=== PATIENT | female | born 1990 | race Caucasian/White ===

== ENCOUNTER 2017-08-10 12:23 | Outpatient (CLI) | payer OTHER ==
[2017-08-10 13:26] VITALS: BP 137/68; PULSE 134; RESP 18; TEMP 98.4
--- NOTE | 2017-09-02 12:39 | P.MSEPDOC ---
Presenting Problems - Arrival Data Date of Arrival on Unit: 08/10/17 Time of Arrival on Unit: 12:15 Mode of Transport: Ambulatory - Complaint OB-Reason for Admission/Chief Complaint: Decreased Movement Medical History - Information : 3 Para: 0 Term: 0 : 0 Abortions: Spontaneous or Elective: 2 Number of Living Children: 0 - Gestational Age Gestational Age by NAIDA (wks/days): 22 Weeks and 2 Days - History Complications: Smoker Review of Systems - Review of Systems Constitutional: No problems Breast: No problems ENT: No problems Cardiovascular: No problems Respiratory: No problems Gastrointestinal: No problems Genitourinary: No problems Musculoskeletal: No problems Neurological: No problems Skin: No problems Vital Signs - Temperature Temperature: 98.4 F Temperature Source: Oral - Pulse Right Brachial Pulse Rate: 134 Pulse Assessment Method: Automatic Cuff - Respirations Respiratory Rate: 18 Oxygen Delivery Method: Room Air - Blood Pressure Right Arm Blood Pressure: 137/68 Blood Pressure Mean: 91 Blood Pressure Source: Automatic Cuff Medical Screen Scoring (Pre) - Cervical Exam Dilation: Exam Deferred - Uterine Contractions Frequency: N/A Duration: N/A Intensity: N/A - Maternal Vital Signs Maternal Temperature: N/A Maternal Blood Pressure: N/A Signs of Preeclampsia: N/A Maternal Respirations: N/A - Pain Assessment Pain Scale Used: Numeric (1 - 10) Pain Intensity: 0 - Maternal Trauma Maternal Trauma: N/A - Assessment Baseline FHR: 128-146 Position: N/A Station: N/A - Total Score Total Score (Pre): 0 - Level of Risk Level of Risk: N/A Physician Notification (Pre) - Physician Notified Physician Notified Date: 08/10/17 Physician Notified Time: 12:47 Physician/Practitioner Notifed:: pipo Spoke With: pipo New Order Received: Yes - Notification Comment Comment: pt may be discharged home with maternal heart rate in low 100's Disposition - Disposition OB Disposition: Discharge to home Discharge Date: 08/10/17 Discharge Time: 13:00 I agree with the RN Medical Screening Exam: Yes Risk & Benefit of care provided described in d/c instruction: Yes Diagnosis: DECREASED MOVEMENTS, SECOND TRIMESTER, FETUS 1
== END 2017-08-10 13:00 | disposition home or self-care (01) ==
LOC: FBPOP 12:23
PROVIDERS: ATTEND Obstetrics & Gynecology
DX: O36.8120 Decreased fetal movements, second trimester, not applicable or unspecified (principal); Z3A.22 22 weeks gestation of pregnancy
CPT/HCPCS: 99213

== ENCOUNTER 2017-11-25 21:34 | Inpatient (IN) | payer OTHER ==
[2017-11-25] MEDS ORDERED: CITRIC ACID-SODIUM CITRATE 15 ML CUP PO ONE (22:22)
[2017-11-25] MEDS ORDERED: ceFAZolin IN SWFI 2 GM/20 ML SYRINGE IVP ONE (22:22)
[2017-11-25] MEDS ORDERED: LACTATED RINGERS 1,000 ML IV ONE (22:22)
[2017-11-25 22:28] LABS: Basophils % (A) 0 %; Eosinophils # (A) 0.1 k/uL (0-0.7); Eosinophils % (A) 0 %; HCT 36.7 % (34.0-46.0); HGB 12.7 gm/dL (11.4-16.0); Lymphocytes # (A) 1.8 k/uL (1.0-4.8); Lymphocytes % (A) 12 %; MCH 29.2 pg (25.0-35.0); MCHC 34.7 g/dL (31.0-37.0); MCV 84.2 fL (80.0-100.0); Mean Platelet Volume 7.2; Monocytes # (A) 0.5 k/uL (0-1.0); Monocytes % (A) 3 %; Neutrophils # (A) 12.2 k/uL (1.3-7.7); Neutrophils % (A) 83 %; Platelet Count 281 k/uL (150-450); RBC 4.36 m/uL (3.80-5.40); RDW 13.5 % (11.5-15.5); WBC 14.8 k/uL (3.8-10.6)
[2017-11-25] MEDS ORDERED: LACTATED RINGERS 1,000 ML IV SCH (22:30)
[2017-11-25 22:32] VITALS: BMI 40.1
--- NOTE | 2017-11-25 22:33 | P.HPOB ---
History of Present Illness H&P Date: 11/25/17 Chief Complaint: My water broke at 8:30 tonight This is a 27-year-old white female 3 para 0020 EDC 12/12/2017 at 37-4/7 weeks' gestation. Patient presents with spontaneous amniorrhexis which occurred at 8:30, clear fluid. She is having uterine contractions as well. She denies vaginal bleeding. Fetus is been active throughout the . Patient has a known breech infant, last seen in the office yesterday. Family history significant for hypertension. Social history patient is single, her boyfriend often is involved and present, one quarter pack per day tobacco, she denies alcohol and or drug use. Past surgical history voluntary termination of 2, tonsillectomy in the past. Past medical history unremarkable. ALLERGIES none known. Current medications vitamins. history is significant for blood type A+, rubella status immune. Urine culture, hepatitis B surface antigen, HIV testing, hepatitis C antibody, group B strep cultures all negative. Diabetes screen 101. On exam this is a pleasant white female, she is 5 foot 6 inches, approximate 235 #, vital signs are stable and patient is afebrile. The general physical exam is within normal limits. Amnio sure testing of the fluid is positive, cervix is 1-2 cm dilated. Bedside examination with the ultrasound confirms breech presentation with the head in the maternal left upper quadrant. heart tones are consistent with reactive NST. Impression: 37-4/7 weeks intrauterine , breech presentation, spontaneous amniorrhexis in early labor. Plan: Close maternal and surveillance. We will proceed with primary low transverse section. Anesthesia staff and nursing staff aware. All risks and benefits of this procedure have been discussed with the patient and I believe she understands our discussion with no question. Past Medical History History of Any Multi-Drug Resistant Organisms: None Reported Smoking Status: Current every day smoker Medications and Allergies Home Medications Medication Instructions Recorded Confirmed Type Pnv,Calcium 72/Iron/Folic Acid 1 tab PO DAILY 08/10/17 11/25/17 History [ Plus Tablet] Allergies Allergy/AdvReac Type Severity Reaction Status Date / Time No Known Allergies Allergy Verified 11/25/17 21:41 Exam Intake and Output 11/25/17 11/25/17 11/25/17 06:59 14:59 22:59 Other: Weight 106.141 kg
[2017-11-25] MEDS ORDERED: diphenhydrAMINE 25 MG CAP PO PRN (23:46)
[2017-11-25] MEDS ORDERED: HYDROcodone/APAP 5-325MG 1 EACH TAB PO PRN (23:46)
[2017-11-25] MEDS ORDERED: ONDANSETRON 4 MG/2 ML VIAL IVP PRN (23:46)
[2017-11-25] MEDS ORDERED: diphenhydrAMINE 50 MG CAP PO PRN (23:46)
[2017-11-25] MEDS ORDERED: ZOLPIDEM 5 MG TAB PO PRN (23:46)
[2017-11-25] MEDS ORDERED: NALOXONE 0.4 MG/ML 1 ML VIAL IV PRN (23:46)
[2017-11-25] MEDS ORDERED: diphenhydrAMINE 50 MG/ML 1 ML VIAL IVP PRN ×2 (23:46)
[2017-11-25] MEDS ORDERED: METOCLOPRAMIDE 5 MG/ML 2 ML VIAL IVP PRN (23:46)
--- NOTE | 2017-11-25 23:46 | P.OP ---
Date of Procedure: 11/25/17 Preoperative Diagnosis: 37-4/7 weeks, mustapha breech, spontaneous amniorrhexis, early labor Postoperative Diagnosis: Same, liveborn male infant, normal-appearing tubes ovaries and uterus Procedure(s) Performed: Primary low transverse section Anesthesia: spinal Surgeon: Kate Naqvi Day Care Aide #1: Kareem Walter Estimated Blood Loss (ml): 500 IV fluids (ml): 800 Urine output (ml): 300 Pathology: other (Placenta) Condition: stable Disposition: PACU Description of Procedure: Patient is brought to the operative suite, vaginal prep was performed and Boyd catheter is placed. A spinal analgesia is given without difficulty per Dr. Harry. She's put in the dorsal lithotomy position with left lateral uterine displacement. Bicitra and antibiotics are given. The appropriate timeout is performed to assure proper patient and procedural identification. Analgesia is checked and noted to be adequate. A low transverse incision is made in this is carried down through the subcutaneous tissue which is approximately 5-6 cm deep. The fascia is isolated , scored and extended bilaterally with curved Mcbride scissors. Peritoneum is next identified and incised, there is no bowel or bladder involvement. The bladder is low from the operative field and therefore not separately developed. Bladder blade is placed over the bladder to avoid any bladder and/or ureteral injury. A low transverse uterine incision is made in this is carried down through the myometrium into the endometrial cavity. The incision is extended bluntly. The infant's buttocks are delivered, sacrum anterior. The legs are delivered and a Pinard-like fashion. The infant is then delivered to the shoulders and a blue towel that is moistened is wrapped around the trunk. With over rotation the right shoulder, and then the left shoulder are delivered with 180 Kait. The chin is delivered flexed, there is no nuchal cord. Official delivery of a liveborn male is 2312 hours. The umbilical cord is doubly clamped and ligated. The oropharynx, nasopharynx, and external nares are thoroughly suctioned. scores of 9 and 9 at one and 5 minutes respectively are given. Infant weighs 6 lbs. 11 oz. or 3030 g. The placenta is delivered manually, it is inspected and noted to be intact with trivascular cord at 2314 hours. The uterus is then externalized. It is wiped clean with a sterile sponge to avoid any retained products of conception. The edges of the incision are grasped with Anton clamps. The uterus is closed in a two-step fashion, first layer running locking, second layer imbricated, both with 0 Vicryl suture. Excellent reapproximation is noted. Bilateral tubes and ovaries are inspected and noted to be normal. The abdomen was suctioned with suction on guard and the uterus is gently placed back into the abdominal cavity. Bilateral gutters are inspected and cleaned. All surfaces are hemostatically intact. Peritoneum was allowed to close by secondary intention. Fascia is closed in a running stitch of 0 Vicryl with over ligation in the midline. Subcutaneous tissue is irrigated, clean and dry. It is reapproximated with 3-0 Vicryl in a running stitch. 4-0 undyed Monocryl issues for final skin closure in a subcuticular manner. Mastisol and Steri-Strips tied to the wound. Dressing is placed. Boyd is noted to be draining clear urine, 300 mL total. Patient is brought back to the recovery room in very good condition with stable vital signs including blood pressure 130/60, pulse 104. Patient and her are requesting circumcision further infant son.
[2017-11-26] MEDS ORDERED: MORPHINE SULFATE 4 MG/ML SYRINGE IVP PRN (00:19)
[2017-11-26] MEDS ORDERED: NALBUPHINE 10 MG/ML VIAL (10ML MDV) IV PRN (00:19)
[2017-11-26] MEDS ORDERED: NALOXONE 0.4 MG/ML 1 ML VIAL IV PRN (00:19)
[2017-11-26] MEDS: LACTATED RINGERS 1,000 ML IV SCH ×3 (04:19→19:45)
[2017-11-26] MEDS: KETOROLAC 30 MG/ML 1 ML VIAL IVP PRN ×2 (05:33→12:58)
[2017-11-26 05:55] LABS: Basophils % (A) 0 %; Eosinophils % (A) 0 %; HCT 35.5 % (34.0-46.0); HGB 11.7 gm/dL (11.4-16.0); Lymphocytes # (A) 1.1 k/uL (1.0-4.8); Lymphocytes % (A) 7 %; MCH 28.4 pg (25.0-35.0); MCHC 32.9 g/dL (31.0-37.0); MCV 86.3 fL (80.0-100.0); Mean Platelet Volume 7.1; Monocytes # (A) 0.5 k/uL (0-1.0); Monocytes % (A) 3 %; Neutrophils % (A) 90 %; Platelet Count 241 k/uL (150-450); RBC 4.11 m/uL (3.80-5.40); RDW 13.6 % (11.5-15.5); WBC 16.6 k/uL (3.8-10.6)
--- NOTE | 2017-11-26 08:12 | P.PN ---
Subjective Progress Note Date: 11/26/17 Minimal sleep last night, tired. . No flatus. Pain well controlled. Objective - Vital Signs Vital signs: Vital Signs Temp 98.3 F 11/26/17 04:00 Pulse 89 11/26/17 04:00 Resp 16 11/26/17 06:00 BP 138/69 11/26/17 04:00 Pulse Ox 97 11/26/17 06:00 Intake & Output 11/25/17 11/26/17 11/26/17 18:59 06:59 18:59 Output Total 775 Balance -775 Weight 106.141 kg Output: Urine 775 Other: Voiding Method Indwelling Catheter # Voids 1 - Constitutional General appearance: Present: average body habitus, cooperative - EENT Eyes: Present: PERRLA ENT: Present: hearing grossly normal - Neck Neck: Present: normal ROM - Respiratory Respiratory: bilateral: CTA - Cardiovascular Rhythm: regular - Gastrointestinal General gastrointestinal: Present: normal bowel sounds - Genitourinary Genitourinary Comment(s): Uterus is firm, mobile, midline, symmetric, 18 week size. Incision clean and dry, intact, Steri-Strips applied. - Integumentary Integumentary: Present: normal - Neurologic Neurologic: Present: CNII-XII intact - Musculoskeletal Musculoskeletal: Present: gait normal, strength equal bilaterally - Psychiatric Psychiatric: Present: A&O x's 3, appropriate affect, intact judgment & insight - Additional findings Additional findings: Patient has had 2 panic attacks since her surgery last night. - Labs CBC & Chem 7: 11/26/17 05:26 Labs: Abnormal Lab Results - Last 24 Hours (Table) 11/25/17 11/26/17 Range/Units 22:00 05:26 WBC 14.8 H 16.6 H (3.8-10.6) k/uL Neutrophils # 12.2 H 15.0 H (1.3-7.7) k/uL Assessment and Plan Assessment: Postoperative day #1. Panic attacks. Postoperatively otherwise doing well. Plan: We'll advance diet at lunch. I had discussion with the patient at the bedside, regarding depression. She does see a counselor as an outpatient, she has an appointment scheduled for tomorrow. Patient denies homicidal or suicidal ideation. However, I feel that a SSRI would be in her best interest, and have suggested Zoloft 50 mg. Patient at this time is declining that option , but states she will keep her mind open over the next 24 hours. Time with Patient: Less than 30
--- NOTE | 2017-11-26 12:21 | P.PN ---
Progress Note - Text Progress Note Date: 11/26/17 27-year-old female status post section postop day #1 with Duramorph spinal. Patient is doing well locations. No motor sensory deficits. Patient' s and bleeding well know no issues. Tolerating diet.
[2017-11-26] MEDS: SENNOSIDES-DOCUSATE SODIUM 1 EACH TAB PO SCH ×2 (18:59→19:27)
[2017-11-26] MEDS: IBUPROFEN 600 MG TAB PO PRN (19:27)
[2017-11-26] MEDS: ACETAMINOPHEN TAB 325 MG TAB PO PRN (21:26)
[2017-11-27] MEDS: IBUPROFEN 600 MG TAB PO PRN ×2 (00:55→10:13)
[2017-11-27] MEDS: ACETAMINOPHEN TAB 325 MG TAB PO PRN ×2 (05:31→15:50)
--- NOTE | 2017-11-27 07:42 | P.PN ---
Subjective Progress Note Date: 11/27/17 Principal diagnosis: Postoperative day #2 Patient reports another mini panic attack last night, asking to start on Zoloft as previously discussed Objective - Vital Signs Vital signs: Vital Signs Temp 98.2 F 11/27/17 00:00 Pulse 92 11/27/17 00:00 Resp 16 11/27/17 00:00 BP 105/59 11/27/17 00:00 Pulse Ox 97 11/26/17 16:00 Intake & Output 11/26/17 11/27/17 11/27/17 18:59 06:59 18:59 Intake Total 350 Output Total 1900 Balance -1550 Intake: IV 350 Lactated Ringers 1,000 ml 350 @ 125 mls/hr IV .Q8H ANGELO Rx#:[id number] Output: Urine 1900 Other: Voiding Method Indwelling Catheter # Voids 2 - Constitutional General appearance: Present: average body habitus, cooperative - EENT Eyes: Present: PERRLA ENT: Present: hearing grossly normal - Respiratory Respiratory: bilateral: CTA - Cardiovascular Rhythm: regular - Gastrointestinal General gastrointestinal: Present: normal bowel sounds - Integumentary Integumentary: Present: normal - Neurologic Neurologic: Present: CNII-XII intact - Musculoskeletal Musculoskeletal: Present: gait normal, strength equal bilaterally - Psychiatric Psychiatric: Present: A&O x's 3, appropriate affect, intact judgment & insight - Labs CBC & Chem 7: 11/26/17 05:26 Assessment and Plan Assessment: Postoperative day #2. Plan: We'll begin Zoloft 50 mg daily. Likely discharge home tomorrow. Continue postoperative support. Time with Patient: Less than 30
[2017-11-27] MEDS ORDERED: SERTRALINE 50 MG TAB PO SCH (09:00)
[2017-11-27 09:50] VITALS: PULSE 107; RESP 18
[2017-11-27] MEDS: SENNOSIDES-DOCUSATE SODIUM 1 EACH TAB PO SCH (10:13)
--- NOTE | 2017-11-27 12:58 | P.DS ---
Providers Date of admission: 11/25/17 21:59 Expected date of discharge: 11/27/17 Attending physician: Kareem Walter Primary care physician: Kareem Walter [facility] Course: This is a 27-year-old white female 3 para 0020 EDC 12/12/2017 at 37-4/7 weeks' gestation. Patient presented to labor and delivery with spontaneous amniorrhexis, clear fluid, and regular uterine contractions in early labor. Her is remarkable for breech presentation, confirmed at the bedside. Decision was made for primary low transverse section. Group B strep cultures negative. Blood type A positive. Rubella status immune. Please see dictated history and physical for details. Patient underwent a low transverse section and gave to a liveborn male with scores of 9 and 9 at one and 5 minutes respectively. Infant was mustapha breech presentation. Tubes and ovaries appeared normal. Uterine architecture normal. Infant weighed 3030 g or 6 lbs. 11 oz. Estimated blood loss 500 mL's. Please see my dictated operative note for details. Postoperatively the patient did well. This morning she is voiding, ambulating and passing flatus without difficulty. Vital signs are stable and she is afebrile. She has experienced several panic attacks, we started her on Zoloft 50 mg this morning. A prescription for same is given. She does see an outside counselor and will continue in their services. [place] has been circumcised, he is doing well and has been discharged per pot room supervisor. Patient's incision is clean and dry, intact, Steri-Strips applied. Extremities reveal no edema. Breasts are not engorged. Patient is therefore being discharged home in good condition. She will continue taking her vitamin daily, and this Zoloft 50 mg once daily. I 've asked her to call me with any fevers shakes or chills, foul smelling or copious lochia, with the passage of large blood clots, with any pain not alleviated by [id number] products, or indeed with any concerns. She will use ibuprofen, 200 mg pills, 3 every 6 hours as needed. The panic attacks, depression or other psychiatric issues as needed. Again, she is encouraged to follow-up with her outpatient counselor as scheduled and to continue taking the Zoloft once daily. Patient Condition at Discharge: Good Plan - Discharge Summary New Discharge Prescriptions: No Action Pnv,Calcium 72/Iron/Folic Acid [ Plus Tablet] 1 tab PO DAILY Discharge Medication List Pnv,Calcium 72/Iron/Folic Acid [ Plus Tablet] 1 tab PO DAILY 08/10/17 [ History] Follow up Appointment(s)/Referral(s): Kareem Walter MD [Primary Care Provider] - 2 Weeks (2) Discharge Disposition: HOME SELF-CARE
[2017-11-27 16:04] VITALS: BP 145/84; TEMP 97.9
== END 2017-11-27 18:32 | disposition home or self-care (01) | DRG 766 ==
LOC: FBPOP 21:34 → 4FBP 21:59
PROVIDERS: ADMIT Obstetrics & Gynecology; ATTEND Obstetrics & Gynecology
PROC: 10D00Z1 Extraction of Products of Conception, Low, Open Approach (ICD-10-PCS; principal; 2017-11-25 22:34)
DX: O32.1XX0 Maternal care for breech presentation, not applicable or unspecified (principal); O99.334 Smoking (tobacco) complicating childbirth; O99.344 Other mental disorders complicating childbirth; F41.0 Panic disorder [episodic paroxysmal anxiety]; F17.210 Nicotine dependence, cigarettes, uncomplicated; Z37.0 Single live birth; Z3A.37 37 weeks gestation of pregnancy; Z82.49 Family history of ischemic heart disease and other diseases of the circulatory system
CPT/HCPCS: 59025; 84112; 85025; 86850; 86900; 86901; 99213